=== PATIENT | male | born 1945 | race Caucasian/White ===

== ENCOUNTER 2016-09-29 16:55 | Inpatient (IN) | payer OTHER ==
[~2016-09-29] VITALS: Ht 182.9 cm; Wt 135.0 kg
[2016-09-29] MEDS ORDERED: WARFARIN SODIUM5 MG PO ×2 (19:08)
[2016-09-29] MEDS ORDERED: FUROSEMIDE80 MG PO (19:09)
[2016-09-29] MEDS ORDERED: TOPROL XL50 MG PO (19:09)
[2016-09-29] MEDS ORDERED: CALCITRIOL0.25 MCG PO (19:09)
[2016-09-29] MEDS ORDERED: AVAPRO300 MG PO (19:09)
[2016-09-29] MEDS ORDERED: HYDRALAZINE HCL25 MG PO (19:09)
[2016-09-29] MEDS ORDERED: LANTUS 3 M100 UNITS1 SC (19:09)
[2016-09-29] MEDS ORDERED: ATORVASTATIN CA80 MG PO (19:09)
[2016-09-29] MEDS ORDERED: ALLOPURINOL100 MG PO (19:09)
[2016-09-29] MEDS ORDERED: HUMALOG100 UNIT/1 SC (19:10)
[2016-09-29 19:24] LABS: MCH 31.1 PG (29.0-34.0); MCHC 31.8 G/DL (30.0-36.0); MCV 97.7 FL (86-99); MEAN PLAT.VOLUME 10.9 uM^3 (9.0-12.4); PLATELET COUNT 165 K/uL (156-360); RBC DIS.WIDTH-CV 15.1 % (11.8-14.6); RBC DIS.WIDTH-SD 55.1 % (39-53); RED BLOOD COUNT 3.99 M/uL (4.00-5.50); WHITE BLOOD COUNT 10.7 K/uL (4.1-10.2)
[2016-09-29 19:33] LABS: CHLORIDE 90 mEq/L (99-109); POTASSIUM 4.6 mEq/L (3.7-5.4); SODIUM 131 mEq/L (136-147)
[2016-09-29 19:34] LABS: INTER. NORMALIZED RATIO 1.1; PROTHROMBIN TIME 11.7 (9.2-11.2)
[2016-09-29 19:35] LABS: GLUCOSE 320 mg/dL (70-99)
[2016-09-29 19:37] LABS: ANION GAP 16 MEQ/L (2-14); TOTAL BILIRUBIN 0.5 mg/dL (0.0-1.0)
[2016-09-29 19:39] LABS: ALKALINE PHOSPHATASE 136 IU/L (3-129); GFR ESTIMATE (CALCULATED) 6 mL/min/
[2016-09-29 19:40] LABS: UREA NITROGEN (BUN) 48 mg/dL (9-23)
[2016-09-29 19:42] LABS: LIPASE 82 U/L (1.0-51.0)
[2016-09-30 01:32] VITALS: BP 90/48
[2016-09-30 02:03] VITALS: BP 122/59
[2016-09-30 06:54] LABS: INTER. NORMALIZED RATIO 1.2
[2016-09-30 06:58] LABS: HEMATOCRIT 31.8 % (38.0-50.0); MCH 31.9 PG (29.0-34.0); MCHC 32.7 G/DL (30.0-36.0); MCV 97.5 FL (86-99); MEAN PLAT.VOLUME 11.3 uM^3 (9.0-12.4); PLATELET COUNT 146 K/uL (156-360); RBC DIS.WIDTH-CV 15.1 % (11.8-14.6); RBC DIS.WIDTH-SD 54.1 % (39-53); RED BLOOD COUNT 3.26 M/uL (4.00-5.50); WHITE BLOOD COUNT 7.9 K/uL (4.1-10.2)
[2016-09-30 07:10] VITALS: BP 84/50
[2016-09-30 07:16] LABS: ANION GAP 12 MEQ/L (2-14); CHLORIDE 91 MEQ/L (99-109); GFR ESTIMATE (CALCULATED) 6 mL/min/; GLUCOSE 275 mg/dL (70-99); POTASSIUM 3.9 MEQ/L (3.7-5.4); SAMPLE HEMOLYSIS CHECK 0; SAMPLE ICTERIC CHECK 0; SAMPLE LIPEMIA CHECK 0; SODIUM 128 MEQ/L (136-147); UREA NITROGEN (BUN) 54 mg/dL (9-23)
[2016-09-30 10:00] VITALS: BP 95/50
[2016-09-30 11:20] VITALS: BP 113/60
[2016-09-30 13:55] LABS: POINT-OF-CARE METER ID UU13113725
[2016-09-30 15:51] LABS: POINT-OF-CARE METER ID UU13113725
[2016-09-30 16:01] VITALS: BP 111/63
[2016-09-30 20:04] LABS: POINT-OF-CARE METER ID UU13113675
[2016-09-30 23:05] LABS: POINT-OF-CARE METER ID UU13113725
[2016-10-01] VITALS: BP 110/52
[2016-10-01 05:23] LABS: INTER. NORMALIZED RATIO 1.3; PROTHROMBIN TIME 13.2 (9.2-11.2)
[2016-10-01 05:25] LABS: PTT 55.7 (25-32)
[2016-10-01 06:55] VITALS: BP 124/61
[2016-10-01 10:54] VITALS: BP 102/52
[2016-10-01 15:11] VITALS: BP 97/47
[2016-10-01 18:48] VITALS: BP 129/68
[2016-10-01 21:01] LABS: POINT-OF-CARE METER ID UU13113725
[2016-10-01 22:37] LABS: ADD MIUA? YES; BILIRUBIN NEGATIVE; BLOOD SMALL; COLOR YELLOW ((YELLOW)); GLUCOSE (STRIP) 150; KETONES NEGATIVE; LEUKOCYTES SMALL; NITRITE NEGATIVE; PROTEIN (STRIP) 100; SPECIFIC GRAVITY 1.025 (1.000-1.030); UROBILINOGEN 0.2 MG/DL (0.2-1.0)
[2016-10-01 22:45] LABS: BACTERIA NONE SEEN /HPF; EPITHELIAL CELLS 1+ /HPF; HYALINE CASTS 0-5 /LPF; MUCUS TRACE /LPF; UCUL ADDED? NO; WHITE BLOOD CELLS 20-30 /HPF (0-5)
[2016-10-01 22:49] VITALS: BP 107/49
[2016-10-02 02:32] VITALS: BP 133/60
[2016-10-02 05:53] LABS: POINT-OF-CARE METER ID UU13113725
[2016-10-02 06:08] LABS: POINT-OF-CARE METER ID UU13113725
[2016-10-02 06:44] VITALS: BP 126/60
[2016-10-02 07:24] LABS: BASOPHIL COUNT 0.1 K/uL (0-0.1); EOSINOPHIL (%) 3.3 % (0-5); EOSINOPHIL COUNT 0.3 K/uL (0-0.3); HEMATOCRIT 31.5 % (38.0-50.0); IMMATURE GRANULOCYTE (%) 0.6 % (0.0-0.7); IMMATURE GRANULOCYTE COUNT 0.1 K/uL; INSTRUMENT ABS NEUTROPHIL CT 5.6 K/uL; LYMPHOCYTE COUNT 1.9 K/uL (1.0-2.8); MCV 96.9 FL (86-99); MEAN PLAT.VOLUME 11.5 uM^3 (9.0-12.4); MONOCYTE (%) 11.5 % (3-12); NEUTROPHIL (%) 62.7 % (45-76); NEUTROPHIL COUNT 5.6 K/uL (1.8-6.4); PLATELET COUNT 141 K/uL (156-360); RBC DIS.WIDTH-CV 14.6 % (11.8-14.6); RBC DIS.WIDTH-SD 51.3 % (39-53); RED BLOOD COUNT 3.25 M/uL (4.00-5.50); WHITE BLOOD COUNT 8.9 K/uL (4.1-10.2)
[2016-10-02 07:39] LABS: INTER. NORMALIZED RATIO 1.5; PROTHROMBIN TIME 15.3 (9.2-11.2); PTT 78.6 (25-32)
[2016-10-02 07:52] LABS: ANION GAP 15 MEQ/L (2-14); CHLORIDE 95 MEQ/L (99-109); GFR ESTIMATE (CALCULATED) 5 mL/min/; POTASSIUM 3.9 MEQ/L (3.7-5.4); SAMPLE HEMOLYSIS CHECK 0; SAMPLE ICTERIC CHECK 0; SAMPLE LIPEMIA CHECK 0; SODIUM 133 MEQ/L (136-147); UREA NITROGEN (BUN) 62 mg/dL (9-23); VANCOMYCIN, TROUGH 29.5 MCG/ML (10-20)
[2016-10-02 07:53] LABS: GLUCOSE 60 mg/dL (70-99)
[2016-10-02 11:19] VITALS: BP 111/56
[2016-10-02 14:04] VITALS: BP 99/48
[2016-10-02 16:30] LABS: POINT-OF-CARE METER ID UU13113725
[2016-10-02 20:55] LABS: POINT-OF-CARE METER ID UU13113725
[2016-10-02 22:39] VITALS: BP 108/51
[2016-10-03 05:52] LABS: POINT-OF-CARE METER ID UU13113725
[2016-10-03 06:21] LABS: HEMATOCRIT 29.8 % (38.0-50.0); MCH 31.6 PG (29.0-34.0); MCHC 32.9 G/DL (30.0-36.0); MCV 96.1 FL (86-99); MEAN PLAT.VOLUME 11.1 uM^3 (9.0-12.4); PLATELET COUNT 163 K/uL (156-360); RBC DIS.WIDTH-CV 14.7 % (11.8-14.6); RBC DIS.WIDTH-SD 51.6 % (39-53); WHITE BLOOD COUNT 10.4 K/uL (4.1-10.2)
[2016-10-03 06:26] LABS: INTER. NORMALIZED RATIO 1.3; PROTHROMBIN TIME 13.2 (9.2-11.2); PTT 56.4 (25-32)
[2016-10-03 06:45] LABS: ANION GAP 15 MEQ/L (2-14); CHLORIDE 98 MEQ/L (99-109); GFR ESTIMATE (CALCULATED) 4 mL/min/; GLUCOSE 49 mg/dL (70-99); POTASSIUM 3.5 MEQ/L (3.7-5.4); SAMPLE HEMOLYSIS CHECK 0; SAMPLE ICTERIC CHECK 0; SAMPLE LIPEMIA CHECK 0; SODIUM 136 MEQ/L (136-147); UREA NITROGEN (BUN) 69 mg/dL (9-23)
[2016-10-03 07:37] VITALS: BP 113/56
[2016-10-03 09:22] LABS: HEMATOCRIT 31.6 % (38.0-50.0); MCH 32.2 PG (29.0-34.0); MCHC 32.9 G/DL (30.0-36.0); MCV 97.8 FL (86-99); MEAN PLAT.VOLUME 10.8 uM^3 (9.0-12.4); PLATELET COUNT 147 K/uL (156-360); RBC DIS.WIDTH-CV 14.8 % (11.8-14.6); RED BLOOD COUNT 3.23 M/uL (4.00-5.50); WHITE BLOOD COUNT 9.9 K/uL (4.1-10.2)
[2016-10-03 10:02] LABS: BAND NEUTROPHILS 0.9 % (0-8.0); BASOPHILS 0.8 %; EOSINOPHIL ABS CT 0; HEMATOLOGY COMMENT 1 SN; LYMPHOCYTES 3.5 % (15.0-45.0); PLAT.SUFFICIENCY DECREASED; SEG.NEUTROPHILS 89.6 % (46.0-76.0); SMUDGE CELLS 0.9
[2016-10-03 10:27] LABS: ANION GAP 14 MEQ/L (2-14); CHLORIDE 97 MEQ/L (99-109); GFR ESTIMATE (CALCULATED) 4 mL/min/; GLUCOSE 78 mg/dL (70-99); POTASSIUM 4.2 MEQ/L (3.7-5.4); SAMPLE HEMOLYSIS CHECK 0; SAMPLE ICTERIC CHECK 0; SAMPLE LIPEMIA CHECK 0; SODIUM 135 MEQ/L (136-147); UREA NITROGEN (BUN) 67 mg/dL (9-23)
[2016-10-03 10:53] LABS: POINT-OF-CARE METER ID UU13113696
[2016-10-03 11:36] LABS: AHBS INDEX 0; HBSG INDEX 0.24; HEPATITIS B SURFACE ANTIBODY Nonreactive; HPCA INDEX 0.26
[2016-10-03 11:40] LABS: POINT-OF-CARE METER ID UU13113819
[2016-10-03 13:52] LABS: ANTI-HEPATITIS B CORE (TOTAL) Nonreactive; HBCT INDEX 0.05
[2016-10-03 17:23] VITALS: BP 123/73
[2016-10-03 22:36] VITALS: BP 119/58
[2016-10-04 07:03] VITALS: BP 116/50
[2016-10-04 07:11] LABS: INTER. NORMALIZED RATIO 1.3; PROTHROMBIN TIME 12.9 (9.2-11.2)
[2016-10-04 07:18] LABS: PTT 62.3 (25-32)
[2016-10-04 11:38] LABS: POINT-OF-CARE METER ID UU13113725
[2016-10-04 15:36] VITALS: BP 111/56
[2016-10-04 22:22] LABS: POINT-OF-CARE METER ID UU13113725
[2016-10-04 23:40] VITALS: BP 126/57
[2016-10-05 05:50] LABS: POINT-OF-CARE METER ID UU13113725
[2016-10-05 06:16] LABS: MCH 32.2 PG (29.0-34.0); MCHC 32.8 G/DL (30.0-36.0); MCV 98.3 FL (86-99); MEAN PLAT.VOLUME 10.7 uM^3 (9.0-12.4); PLATELET COUNT 126 K/uL (156-360); RBC DIS.WIDTH-CV 14.7 % (11.8-14.6); RBC DIS.WIDTH-SD 52.2 % (39-53); RED BLOOD COUNT 2.95 M/uL (4.00-5.50); WHITE BLOOD COUNT 7.7 K/uL (4.1-10.2)
[2016-10-05 06:31] LABS: INTER. NORMALIZED RATIO 1.3; PROTHROMBIN TIME 13.8 (9.2-11.2); PTT 58.5 (25-32)
[2016-10-05 07:57] VITALS: BP 149/65
[2016-10-05 08:42] LABS: ANION GAP 12 MEQ/L (2-14); CHLORIDE 100 MEQ/L (99-109); GFR ESTIMATE (CALCULATED) 6 mL/min/; GLUCOSE 83 mg/dL (70-99); POTASSIUM 4.4 MEQ/L (3.7-5.4); SAMPLE HEMOLYSIS CHECK 0; SAMPLE ICTERIC CHECK 0; SAMPLE LIPEMIA CHECK 0; SODIUM 136 MEQ/L (136-147); UREA NITROGEN (BUN) 41 mg/dL (9-23)
[2016-10-05 12:18] VITALS: BP 125/63
[2016-10-05 16:46] VITALS: BP 111/55
[2016-10-05 16:52] LABS: POINT-OF-CARE METER ID UU13113725
[2016-10-05 23:45] LABS: POINT-OF-CARE METER ID UU13113725
[2016-10-06 00:05] VITALS: BP 136/61
[2016-10-06 07:15] LABS: INTER. NORMALIZED RATIO 1.9; PROTHROMBIN TIME 19.2 (9.2-11.2); PTT 38.5 (25-32)
[2016-10-06 07:50] VITALS: BP 113/53
[2016-10-06] MEDS ORDERED: LOSARTAN POTASS25 MG PO (11:25)
[2016-10-06] MEDS ORDERED: GABAPENTIN100 MG PO (11:27)
== END 2016-10-06 13:38 | disposition home health service (06) | DRG 981 ==
LOC: EME 16:55 → 5EAST 22:14 → EDOF 22:14 → 5EAST 09-30 01:20
PROVIDERS: Hospitalist; Internal Medicine; Nurse Practitioner Family; Surgery
PROC: 0WPG03Z Removal of Infusion Device from Peritoneal Cavity, Open Approach (ICD-10-PCS; principal; 2016-09-30)
PROC: 3E1M39Z Irrigation of Peritoneal Cavity using Dialysate, Percutaneous Approach (ICD-10-PCS; 2016-09-30)
PROC: 02HV33Z Insertion of Infusion Device into Superior Vena Cava, Percutaneous Approach (ICD-10-PCS; 2016-10-03)
PROC: 5A1D00Z (ICD-10-PCS; 2016-10-03)
DX: T85.71XA Infection and inflammatory reaction due to peritoneal dialysis catheter, initial encounter (principal); Y84.8 Other medical procedures as the cause of abnormal reaction of the patient, or of later complication, without mention of misadventure at the time of the procedure; K65.9 Peritonitis, unspecified; B95.62 Methicillin resistant Staphylococcus aureus infection as the cause of diseases classified elsewhere; E87.1 Hypo-osmolality and hyponatremia; E11.21 Type 2 diabetes mellitus with diabetic nephropathy; E11.22 Type 2 diabetes mellitus with diabetic chronic kidney disease; I12.0 Hypertensive chronic kidney disease with stage 5 chronic kidney disease or end stage renal disease; N18.6 End stage renal disease; N25.81 Secondary hyperparathyroidism of renal origin; D63.1 Anemia in chronic kidney disease; E78.00 Pure hypercholesterolemia, unspecified; F17.290 Nicotine dependence, other tobacco product, uncomplicated; I48.91 Unspecified atrial fibrillation; E78.4 Other hyperlipidemia; I87.2 Venous insufficiency (chronic) (peripheral); E87.6 Hypokalemia; E83.39 Other disorders of phosphorus metabolism; R20.0 Anesthesia of skin; E55.9 Vitamin D deficiency, unspecified; E66.9 Obesity, unspecified; Z68.41 Body mass index [BMI] 40.0-44.9, adult; Z79.4 Long term (current) use of insulin; Z79.01 Long term (current) use of anticoagulants; Z86.718 Personal history of other venous thrombosis and embolism; Z99.2 Dependence on renal dialysis; Z95.3 Presence of xenogenic heart valve; Z66 Do not resuscitate
CPT/HCPCS: 71010; 80048; 80053; 80069; 80202; 81003; 82565; 82948; 83690; 84100; 84520; 85025; 85027; 85610; 85730; 86704; 86706; 86803; 87040; 87340; 99281; 99285; C1750; C1894; G0378; J0690; J0881; J1644; J1815; J2250; J3010; J3370; P9047; S0020

== ENCOUNTER 2016-11-30 09:13 | Day surgery (SDC) | payer OTHER ==
[~2016-11-30] VITALS: Ht 182.9 cm; Wt 124.7 kg
[~2016-11-30 09:13] MED LIST: ALLOPURINOL100 MG PO; APRESOLINE25 MG PO; ATORVASTATIN CA80 MG PO; AVAPRO300 MG PO; CALCITRIOL0.25 MCG PO; FUROSEMIDE80 MG PO; GABAPENTIN100 MG PO; HUMALOG100 UNIT/1 SC; HYDRALAZINE HCL25 MG PO; LANTUS 3 M100 UNITS1 SC; LOSARTAN POTASS25 MG PO; TOPROL XL50 MG PO; WARFARIN SODIUM5 MG PO
[2016-11-30 10:09] LABS: MCH 31.6 PG (29.0-34.0); MCHC 31.8 G/DL (30.0-36.0); MCV 99.3 FL (86-99); MEAN PLAT.VOLUME 10.1 uM^3 (9.0-12.4); PLATELET COUNT 194 K/uL (156-360); RBC DIS.WIDTH-CV 13.3 % (11.8-14.6); RBC DIS.WIDTH-SD 48.6 % (39-53); RED BLOOD COUNT 2.82 M/uL (4.00-5.50); WHITE BLOOD COUNT 8.7 K/uL (4.1-10.2)
[2016-11-30 10:14] LABS: INTER. NORMALIZED RATIO 1.2; PTT 28.9 SEC (25-37)
[2016-11-30 10:41] LABS: ANION GAP 16 MEQ/L (2-14); CHLORIDE 100 MEQ/L (99-109); GFR ESTIMATE (CALCULATED) 8 mL/min/; GLUCOSE 161 mg/dL (70-99); SAMPLE HEMOLYSIS CHECK 0; SAMPLE ICTERIC CHECK 0; SAMPLE LIPEMIA CHECK 0; SODIUM 139 MEQ/L (136-147); UREA NITROGEN (BUN) 41 mg/dL (9-23)
[2016-11-30 11:29] LABS: METH RESISTANT S AUREUS PCR NEGATIVE (NEGATIVE)
[2016-11-30 11:30] LABS: PROBE CHECK PASS; SPECIMEN PROCESSING CONTROL PASS
[2016-11-30] MEDS ORDERED: NORCO 5/3251 TABLET PO (13:25)
[2016-11-30 13:31] LABS: POINT-OF-CARE METER ID UU13113675
[2016-11-30 14:35] VITALS: BP 186/114
[2016-11-30 15:31] VITALS: BP 196/94
[2016-11-30 16:00] VITALS: BP 162/72
[2016-11-30 16:44] VITALS: BP 176/76
== END 2016-11-30 16:55 | disposition home or self-care (01) ==
LOC: SDC 09:13
PROVIDERS: Surgery
PROC: 0WHG43Z Insertion of Infusion Device into Peritoneal Cavity, Percutaneous Endoscopic Approach (ICD-10-PCS; principal; 2016-11-30)
DX: I12.0 Hypertensive chronic kidney disease with stage 5 chronic kidney disease or end stage renal disease (principal); E11.22 Type 2 diabetes mellitus with diabetic chronic kidney disease; N18.6 End stage renal disease; Z99.2 Dependence on renal dialysis; I25.10 Atherosclerotic heart disease of native coronary artery without angina pectoris; Z79.4 Long term (current) use of insulin; Z79.01 Long term (current) use of anticoagulants
CPT/HCPCS: 80048; 82948; 85027; 85610; 85730; 87641; 93005; C1750; J0690; J1170; J2250; J2710; J3010; S0020